=== PATIENT | female | born 1985 | race Hispanic/Latino ===

== ENCOUNTER 2017-06-03 09:52 | Emergency (ER) | payer MEDICAID ==
[2017-06-03 10:51] VITALS: BP 144/87
--- NOTE | 2017-06-03 12:51 | Emergency Department Report ---
Minor Respiratory - HPI Chief Complaint: Fever Stated Complaint: FEVER, THROAT AND JOINT ACHES Time Seen by Provider: 06/03/17 12:42 Duration: 2 Days Severity: moderate Minor Respiratory: Yes Rhinorrhea, Yes Sore Throat, Yes Able to Tolerate Fluids , Yes Cough, No Ear Pain, No Sick Contacts, No Hemoptysis, No Chest Pain, No Shortness of Breath, No Fever Other History: Patient is a 31-year-old female who is presenting with flulike symptoms. Patient has body aches cough, congestion and slight sore throat. Patient is not vomiting at this time. ED Review of Systems ROS: Stated complaint: FEVER, THROAT AND JOINT ACHES Other details as noted in HPI Comment: All other systems reviewed and negative ED Past Medical Hx - Past Medical History Previous Medical History?: Yes Hx Hypertension: Yes Additional medical history: PCOS. Fatty Liver - Surgical History Hx Cholecystectomy: Yes - Social History Smoking Status: Never Smoker Substance Use Type: None, Non Opiate Pain - Medications Home Medications: Home Medications Medication Instructions Recorded Confirmed Last Taken Type Methyldopa [Aldomet] 250 mg PO BID 02/14/13 03/15/14 03/14/14 16:00 History metFORMIN [Glucophage] 1,000 mg PO BID 02/14/13 03/15/14 03/13/14 19:00 History Ibuprofen [Motrin] 800 mg PO TID PRN #30 tablet 10/05/14 Unknown Rx Sulfamethoxazole/Trimethoprim 1 each PO BID #6 tablet 10/05/14 Unknown Rx [Bactrim Ds] methOCARBAMOL [Robaxin] 500 mg PO BID #20 tab 10/05/14 Unknown Rx traMADol [Ultram 50 MG tab] 50 mg PO Q6HR PRN #14 tablet 10/05/14 Unknown Rx Azithromycin [Zithromax TAB] 500 mg PO QDAY #5 tablet 01/14/15 Unknown Rx Ibuprofen [Motrin 800 MG tab] 800 mg PO Q8HR PRN #30 tablet 01/14/15 Unknown Rx ALBUTEROL Inhaler [ProAir HFA 2 puff IH QID PRN #1 inhalation 06/03/17 Unknown Rx Inhaler] Benzonatate [Tessalon Perle] 100 mg PO TID #12 capsule 06/03/17 Unknown Rx HYDROcodone/APAP 5-325 [[place] 1 each PO Q4HR PRN #12 tablet 06/03/17 Unknown Rx 5/325] predniSONE [Deltasone] 10 mg PO QDAY #5 tab 06/03/17 Unknown Rx Minor Respiratory Exam - Exam General: Vital signs noted. No distress. Alert and acting appropriately. HEENT: Yes Moist Mucous Membranes, No Pharyngeal Erythema, No Pharyngeal Exudates, No Rhinorrhea, No Conjuctival Injection, No Frontal Tenderness, No Maxillary Tenderness Ear: Neither TM Bulge, Neither TM Erythema, Neither EAC Pain, Neither EAC Discharge Neck: Yes Supple, No Adenopathy Lungs: Yes Good Air Exchange, No Wheezes, No Ronchi, No Stridor, No Cough, No Labored Respirations, No Retractions, No Use of Accessory Muscles, No Other Abnormal Lung Sounds Heart: Yes Regular, No Murmur Abdomen: Yes Normal Bowel Sounds, No Tenderness, No Peritoneal Signs Skin: No Rash, No Edema Neurologic: Alert and oriented, no deficits. Musculoskeletal: Unremarkable. ED Course Vital Signs 06/03/17 10:38 Temperature 98.5 F Pulse Rate 93 H Respiratory 18 Rate Blood Pressure 144/87 O2 Sat by Pulse 99 Oximetry Critical care attestation.: If time is entered above; I have spent that time in minutes in the direct care of this critically ill patient, excluding procedure time. ED Disposition Clinical Impression: Flu-like symptoms Disposition: DC-01 TO HOME OR SELFCARE Is pt being admited?: No Does the pt Need Aspirin: No Condition: Stable Instructions: Influenza (ED) Prescriptions: ALBUTEROL Inhaler [ProAir HFA Inhaler] 2 puff IH QID PRN #1 inhalation PRN Reason: Shortness Of Breath Benzonatate [Tessalon Perle] 100 mg PO TID #12 capsule HYDROcodone/APAP 5-325 [[place] 5/325] 1 each PO Q4HR PRN #12 tablet PRN Reason: Pain predniSONE [Deltasone] 10 mg PO QDAY #5 tab Referrals: PRIMARY CARE,MD [Primary Care Provider] - 3-5 Days
== END 2017-06-03 13:25 | disposition home or self-care (01) ==
LOC: ED 09:52
DX: J11.1 Influenza due to unidentified influenza virus with other respiratory manifestations (principal); I10 Essential (primary) hypertension
CPT/HCPCS: 99282

== ENCOUNTER 2017-10-12 17:15 | Emergency (ER) | payer MEDICAID ==
[2017-10-12 17:31] VITALS: BP 132/89
[2017-10-12] MEDS ORDERED: TYLENOL #3 PO ONE (20:37)
[2017-10-12] MEDS ORDERED: CLEOCIN IM ONE (20:37)
--- NOTE | 2017-10-12 20:40 | Emergency Department Report ---
- General Chief complaint: Wound/Laceration Stated complaint: INSECT BITE Time Seen by Provider: 10/12/17 19:51 Source: patient Mode of arrival: Ambulatory Limitations: No Limitations - History of Present Illness Initial comments: This is a 32-year-old female nontoxic, well nourished in appearance, no acute signs of distress presents to the ED with c/o of redness with pain of the right upper leg x3 days. Patient stated she believes she was bitten but something. Patient denies any nausea, vomiting, chest pain, shortness of breathe, fever, chills, headache, back pain, numbness or tingling. Patient states allergies to penicillin. Denies any past medical history. MD complaint: insect bite/sting -: days(s) (3) Location: LUE Severity: mild Severity scale (0 -10): 8 Quality: aching Consistency: constant Improves with: none Worsens with: none Context: none Associated symptoms: denies other symptoms Treatments Prior to Arrival: none - Related Data Home Medications Medication Instructions Recorded Confirmed Last Taken Methyldopa [Aldomet] 250 mg PO BID 02/14/13 03/15/14 03/14/14 16:00 metFORMIN [Glucophage] 1,000 mg PO BID 02/14/13 03/15/14 03/13/14 19:00 Previous Rx's Medication Instructions Recorded Last Taken Type Ibuprofen [Motrin] 800 mg PO TID PRN #30 tablet 10/05/14 Unknown Rx Sulfamethoxazole/Trimethoprim 1 each PO BID #6 tablet 10/05/14 Unknown Rx [Bactrim Ds] methOCARBAMOL [Robaxin] 500 mg PO BID #20 tab 10/05/14 Unknown Rx traMADol [Ultram 50 MG tab] 50 mg PO Q6HR PRN #14 tablet 10/05/14 Unknown Rx Azithromycin [Zithromax TAB] 500 mg PO QDAY #5 tablet 01/14/15 Unknown Rx Ibuprofen [Motrin 800 MG tab] 800 mg PO Q8HR PRN #30 tablet 01/14/15 Unknown Rx ALBUTEROL Inhaler [ProAir HFA 2 puff IH QID PRN #1 inhalation 06/03/17 Unknown Rx Inhaler] Benzonatate [Tessalon Perle] 100 mg PO TID #12 capsule 06/03/17 Unknown Rx HYDROcodone/APAP 5-325 [[place] 1 each PO Q4HR PRN #12 tablet 06/03/17 Unknown Rx 5/325] predniSONE [Deltasone] 10 mg PO QDAY #5 tab 06/03/17 Unknown Rx Clindamycin [Clindamycin CAP] 300 mg PO Q8H #21 cap 10/12/17 Unknown Rx Ibuprofen [Motrin] 600 mg PO Q8H PRN #30 tablet 10/12/17 Unknown Rx Allergies Allergy/AdvReac Type Severity Reaction Status Date / Time Penicillins Allergy Rash Verified 01/14/15 18:07 Abscess Boil HPI - HPI Chief Complaint: Wound/Laceration Stated Complaint: INSECT BITE Time Seen by Provider: 10/12/17 19:51 Home Medications: Home Medications Medication Instructions Recorded Confirmed Last Taken Methyldopa [Aldomet] 250 mg PO BID 02/14/13 03/15/14 03/14/14 16:00 metFORMIN [Glucophage] 1,000 mg PO BID 02/14/13 03/15/14 03/13/14 19:00 Previous Rx's Medication Instructions Recorded Last Taken Type Ibuprofen [Motrin] 800 mg PO TID PRN #30 tablet 10/05/14 Unknown Rx Sulfamethoxazole/Trimethoprim 1 each PO BID #6 tablet 10/05/14 Unknown Rx [Bactrim Ds] methOCARBAMOL [Robaxin] 500 mg PO BID #20 tab 10/05/14 Unknown Rx traMADol [Ultram 50 MG tab] 50 mg PO Q6HR PRN #14 tablet 10/05/14 Unknown Rx Azithromycin [Zithromax TAB] 500 mg PO QDAY #5 tablet 01/14/15 Unknown Rx Ibuprofen [Motrin 800 MG tab] 800 mg PO Q8HR PRN #30 tablet 01/14/15 Unknown Rx ALBUTEROL Inhaler [ProAir HFA 2 puff IH QID PRN #1 inhalation 06/03/17 Unknown Rx Inhaler] Benzonatate [Tessalon Perle] 100 mg PO TID #12 capsule 06/03/17 Unknown Rx HYDROcodone/APAP 5-325 [[place] 1 each PO Q4HR PRN #12 tablet 06/03/17 Unknown Rx 5/325] predniSONE [Deltasone] 10 mg PO QDAY #5 tab 06/03/17 Unknown Rx Clindamycin [Clindamycin CAP] 300 mg PO Q8H #21 cap 10/12/17 Unknown Rx Ibuprofen [Motrin] 600 mg PO Q8H PRN #30 tablet 10/12/17 Unknown Rx Allergies/Adverse Reactions: Allergies Allergy/AdvReac Type Severity Reaction Status Date / Time Penicillins Allergy Rash Verified 01/14/15 18:07 ED Review of Systems ROS: Stated complaint: INSECT BITE Other details as noted in HPI Constitutional: denies: chills, fever Eyes: denies: eye pain, eye discharge, vision change ENT: denies: ear pain, throat pain Respiratory: denies: cough, shortness of breath, wheezing Cardiovascular: denies: chest pain, palpitations Endocrine: no symptoms reported Gastrointestinal: denies: abdominal pain, nausea, diarrhea Genitourinary: denies: urgency, dysuria, discharge Musculoskeletal: denies: back pain, joint swelling, arthralgia Skin: denies: rash, lesions Neurological: denies: headache, weakness, paresthesias Psychiatric: denies: anxiety, depression Hematological/Lymphatic: denies: easy bleeding, easy bruising ED Past Medical Hx - Past Medical History Previous Medical History?: Yes Hx Hypertension: Yes Additional medical history: PCOS. Fatty Liver - Surgical History Past Surgical History?: Yes Hx Cholecystectomy: Yes - Social History Smoking Status: Never Smoker Substance Use Type: None - Medications Home Medications: Home Medications Medication Instructions Recorded Confirmed Last Taken Type Methyldopa [Aldomet] 250 mg PO BID 02/14/13 03/15/14 03/14/14 16:00 History metFORMIN [Glucophage] 1,000 mg PO BID 02/14/13 03/15/14 03/13/14 19:00 History Ibuprofen [Motrin] 800 mg PO TID PRN #30 tablet 10/05/14 Unknown Rx Sulfamethoxazole/Trimethoprim 1 each PO BID #6 tablet 10/05/14 Unknown Rx [Bactrim Ds] methOCARBAMOL [Robaxin] 500 mg PO BID #20 tab 10/05/14 Unknown Rx traMADol [Ultram 50 MG tab] 50 mg PO Q6HR PRN #14 tablet 10/05/14 Unknown Rx Azithromycin [Zithromax TAB] 500 mg PO QDAY #5 tablet 01/14/15 Unknown Rx Ibuprofen [Motrin 800 MG tab] 800 mg PO Q8HR PRN #30 tablet 01/14/15 Unknown Rx ALBUTEROL Inhaler [ProAir HFA 2 puff IH QID PRN #1 inhalation 06/03/17 Unknown Rx Inhaler] Benzonatate [Tessalon Perle] 100 mg PO TID #12 capsule 06/03/17 Unknown Rx HYDROcodone/APAP 5-325 [[place] 1 each PO Q4HR PRN #12 tablet 06/03/17 Unknown Rx 5/325] predniSONE [Deltasone] 10 mg PO QDAY #5 tab 06/03/17 Unknown Rx Clindamycin [Clindamycin CAP] 300 mg PO Q8H #21 cap 10/12/17 Unknown Rx Ibuprofen [Motrin] 600 mg PO Q8H PRN #30 tablet 10/12/17 Unknown Rx ED Physical Exam - General Limitations: No Limitations General appearance: alert, in no apparent distress - Head Head exam: Present: atraumatic, normocephalic - Eye Eye exam: Present: normal appearance Pupils: Present: normal accommodation - ENT ENT exam: Present: normal exam, mucous membranes moist - Neck Neck exam: Present: normal inspection, full ROM. Absent: tenderness, meningismus, lymphadenopathy - Respiratory Respiratory exam: Present: normal lung sounds bilaterally. Absent: respiratory distress, wheezes, rales, rhonchi, stridor, chest wall tenderness, accessory muscle use, decreased breath sounds, prolonged expiratory - Cardiovascular Cardiovascular Exam: Present: regular rate, normal rhythm, normal heart sounds. Absent: bradycardia, tachycardia, irregular rhythm, systolic murmur, diastolic murmur, rubs, gallop - GI/Abdominal GI/Abdominal exam: Present: soft, normal bowel sounds. Absent: distended, tenderness, guarding, rebound, rigid, diminished bowel sounds - Rectal Rectal exam: Present: deferred - Extremities Exam Extremities exam: Present: normal inspection, full ROM, tenderness, normal capillary refill. Absent: joint swelling - Expanded Lower Extremity Exam Right Hip exam: Present: normal inspection, full ROM Upper Leg exam: Present: normal inspection, full ROM Knee exam: Present: normal inspection, full ROM. Absent: tenderness, swelling Lower Leg exam: Present: normal inspection, full ROM, tenderness, erythema. Absent: swelling, abrasion, laceration, ecchymosis, deformity, crepidus, dislocation, palpable cord, Monica's sign Ankle exam: Present: normal inspection, full ROM. Absent: tenderness, swelling Foot/Toe exam: Present: normal inspection, full ROM. Absent: tenderness, swelling Neuro vascular tendon exam: Present: no vascular compromise. Absent: pulse deficit, abnormal cap refill, motor deficit, sensory deficit, tendon deficit, extremity cold to touch, pallor, abnormal 2-point discrimination, decreased fine /light touch, foot drop, peroneal nerve deficit, significant pain with passive ROM of distal joint Gait: Positive: observed and limited by pain 1 - cellulitis - Back Exam Back exam: Present: normal inspection, full ROM - Neurological Exam Neurological exam: Present: alert, oriented X3, normal gait - Psychiatric Psychiatric exam: Present: normal affect, normal mood - Skin Skin exam: Present: warm, dry, intact, normal color. Absent: rash ED Course Vital Signs 10/12/17 17:24 Temperature 97.8 F Pulse Rate 89 Blood Pressure 132/89 O2 Sat by Pulse 99 Oximetry - Reevaluation(s) Reevaluation #1: 10/12/17 20:43 Patient is speaking in full sentences with no signs of distress noted. ED Medical Decision Making - Medical Decision Making This is a 32-year-old female that presents with cellulitis. Patient is stable and was examined by me. There is no induration or fluctuance. Vital signs are stable. Patient with clindamycin and Tylenol with codeine in the ED. Patient' s mother is at the bedside and she will drive her home after discharge due to possible drowsiness. Patient is discharged with clindamycin and Motrin. A black sharpie marker has he outlined the cellulitis and patient was instructed to return to ED if symptoms of redness past the line. Patient was instructed to refer to Follow-up with a primary care doctor in 3-5 days or if symptoms worsen and continue return to emergency room as soon as possible. At time of discharge, the patient does not seem toxic or ill in appearance. No acute signs of distress noted. Patient agrees to discharge treatment plan of care. No further questions noted by the patient. Critical care attestation.: If time is entered above; I have spent that time in minutes in the direct care of this critically ill patient, excluding procedure time. ED Disposition Clinical Impression: Cellulitis Qualifiers: Site of cellulitis: extremity Site of cellulitis of extremity: lower extremity Laterality: right Qualified Code(s): L03.115 - Cellulitis of right lower limb Disposition: TO HOME OR SELFCARE Is pt being admited?: No Does the pt Need Aspirin: No Condition: Stable Instructions: Cellulitis (ED), Clindamycin (By mouth) Additional Instructions: Follow-up with a primary care doctor in 3-5 days or if symptoms worsen and continue return to emergency room as soon as possible. Prescriptions: Clindamycin [Clindamycin CAP] 300 mg PO Q8H #21 cap Ibuprofen [Motrin] 600 mg PO Q8H PRN #30 tablet PRN Reason: Pain Referrals: PRIMARY CAREMD [Primary Care Provider] - 3-5 Days ZAK WELLER MD [Staff Physician] - 3-5 Days [facility] [Outside] - 3-5 Days [facility] [Outside] - 3-5 Days Forms: Work/School Release Form(ED)
== END 2017-10-12 21:45 | disposition home or self-care (01) ==
LOC: ED 17:15
DX: L03.115 Cellulitis of right lower limb (principal); I10 Essential (primary) hypertension; Z88.0 Allergy status to penicillin
CPT/HCPCS: 96372; 99282